=== PATIENT | female | born 1990 | race Asian ===

== ENCOUNTER 2018-02-01 16:49 | Emergency (ER) | payer OTHER ==
[2018-02-01 16:58] VITALS: BP 103/79
--- NOTE | 2018-02-01 17:40 | EDPHY ---
H & P Stated Complaint: neck pain for past few days Time Seen by Provider: 02/01/18 17:26 HPI/ROS: CHIEF COMPLAINT: Right lateral neck pain HISTORY OF PRESENT ILLNESS: 28-year-old female currently approximately 8 weeks based on last menstrual complaining of right lateral neck pain for the past 3 days after she was watching TV in bed with her head turned an awkward angle. She has not taken any analgesics including no [id number] analgesic. She has reproducible pain to the right paraspinous cervical region with palpation and range of motion. She denies: Radicular symptoms, history of major minor head or neck trauma, chiropractic manipulation, acupuncture, deep tissue massage, denies ocular complaints, facial complaints, headache, dizziness. PRIMARY CARE PROVIDER: REVIEW OF SYSTEMS: A ten point review of systems was performed and is negative with the exception of the items mentioned in the HPI PAST MEDICAL/SURGICAL HISTORY: no anticoagulant use, currently approximately 8 weeks SOCIAL HISTORY: nonsmoker PHYSICAL EXAM 1) GENERAL: Well-developed, well-nourished, alert and oriented. Appears to be in no acute distress. Answering questions appropriately. 2) HEAD: Normocephalic, atraumatic 3) HEENT: Pupils equal, round, reactive to light bilaterally. Negative Horners. Nasopharynx, oropharynx, clear. No deformity or angulation of nose. No septal hematoma. No rhinorrhea. No oral trauma. Ears bilaterally with normal tympanic membranes. No hemotympanum.. 4) NECK: Tender to palpation right paraspinous cervical region. No midline pain. This pain is reproducible with palpation and range of motion. Posterior cervical spine is nontender, no stepoff, no effusion. Full range of motion which does not elicit any midline cervical spine pain, no posterior midline tenderness, no step-off. No carotid bruit. 5) LUNGS: Clear to auscultation bilaterally, no wheezes, no rhonchi, no retractions. No obvious signs of trauma. No chest wall pain. No flaring, no grunting. Moving symmetrically. No crepitus. 6) HEART: [Regular rate and rhythm, 7) ABDOMEN: No guarding, no rebound, no focal tenderness, no peritoneal signs, no signs of trauma, no ecchymosis 8) MUSCULOSKELETAL: Moving all extremities, no focal areas of tenderness, no obvious trauma. 9) BACK: No midline vertebral tenderness, no fluctuance, no step-off, no obvious trauma, no visual or palpable abnormality. 10) SKIN: No laceration. No abrasion 11) NEURO: Awake, alert, and oriented to person, place and time. Answers questions appropriately. There were no obvious focal neurologic abnormalities. No cerebellar dysfunction. Cranial nerves 2 through to 12 intact. Normal steady gait. Upper and lower extremities bilaterally with strength 5 / 5, reflexes 2+. DIFFERENTIAL DIAGNOSIS: In no particular order my differential includes but is not limited to deep space infection, cervico-cranial vessel disssection, muscle strain. - Personal History LMP (Females 10-55): Over 28 Days Ago - Medical/Surgical History Hx Asthma: No Hx Chronic Respiratory Disease: No Hx Diabetes: No Hx Cardiac Disease: No Hx Renal Disease: No Hx Cirrhosis: No Hx Alcoholism: No Hx HIV/AIDS: No Hx Splenectomy or Spleen Trauma: No Other PMH: hypothyroid - Social History Smoking Status: Never smoked Constitutional: Initial Vital Signs Temperature (C) 36.7 C 02/01/18 16:55 Heart Rate 87 02/01/18 16:55 Respiratory Rate 18 02/01/18 16:55 Blood Pressure 103/79 02/01/18 16:55 O2 Sat (%) 99 02/01/18 16:55 O2 Delivery Mode Room Air Allergies/Adverse Reactions: No Known Allergies Allergy (Unverified 02/01/18 16:54) Home Medications: Medication Instructions Recorded Lidocaine [Lidoderm] 1 each TP BID #30 adh..patch 02/01/18 Synthroid 02/01/18 Medical Decision Making ED Course/Re-evaluation: I think that the patient's symptoms are more than likely secondary to muscular strain. I think that cervico-cranial vessel dissection is less than likely in this patient at this time. At this time I do not that imaging studies are indicated. We discussed analgesics the presence of 1st trimester including Tylenol, Lidoderm patches. She has been given strict return precautions. I discussed this with the patient and she is in agreement and feels comfortable with this treatment plan. My usual and customary cervical precautions and instructions have been provided including avoiding manipulation of the area. Patient feels comfortable being discharged Departure - Departure Disposition: Home, Routine, Self-Care Clinical Impression: Cervical strain, acute Qualifiers: Encounter type: initial encounter Qualified Code(s): S16.1XXA - Strain of muscle, fascia and tendon at neck level, initial encounter Condition: Good Instructions: Cervical Strain (ED) Additional Instructions: Return to the ER immediately if you experience new or worsening neck pain, dizziness, visual disturbance, double vision, lightheadedness, facial droop, or any other symptoms that concern you. Avoid deep tissue massage and chiropractic manipulation, until symptom-free, and cleared by your regular health care provider. Adult Pain & Fever Control: We recommend Acetaminophen (Tylenol) For pain. Your dose is: Acetaminophen [650]mg every 4 to 6 hours Referrals: Chelita Guadalupe MD [Primary Care Provider] - 02/04/18 Prescriptions: Lidocaine [Lidoderm] 1 each TP BID #30 adh..patch
[2018-02-01] MEDS ORDERED: ACETAMINOPHEN 325 MG TAB PO ONE (17:42)
[2018-02-01] MEDS ORDERED: LIDOCAINE 4%/MENTHOL 1% PATCH TD ONE (17:43)
[2018-02-01] MEDS ORDERED: PATCH REMOVAL 1 EA PATCH TD SCH (21:00)
== END 2018-02-01 17:58 | disposition home or self-care (01) ==
DX: O9A.211 Injury, poisoning and certain other consequences of external causes complicating pregnancy, first trimester (principal); S16.1XXA Strain of muscle, fascia and tendon at neck level, initial encounter; Z3A.08 8 weeks gestation of pregnancy; X50.9XXA Other and unspecified overexertion or strenuous movements or postures, initial encounter; Y92.89 Other specified places as the place of occurrence of the external cause; Y99.8 Other external cause status; Y93.89 Activity, other specified

== ENCOUNTER → 2018-02-01 | Outpatient (CLI) | payer OTHER | LOC: FIMAGING 14:59 | PROVIDERS: ATTEND Obstetrics & Gynecology | DX: Z32.01 Encounter for pregnancy test, result positive (principal); Z3A.01 Less than 8 weeks gestation of pregnancy ==

== ENCOUNTER 2018-02-02 12:13 | Emergency (ER) | payer OTHER ==
[2018-02-02] MEDS ORDERED: ACETAMINOPHEN 500 MG TAB PO ONE (13:26)
[2018-02-02] MEDS ORDERED: NS 1,000 ML IV ONE (13:26)
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
[2018-02-02 16:58] VITALS: BP 118/75
== END 2018-02-02 17:05 | disposition home or self-care (01) ==
DX: O99.511 Diseases of the respiratory system complicating pregnancy, first trimester (principal); J02.9 Acute pharyngitis, unspecified; O99.89 Other specified diseases and conditions complicating pregnancy, childbirth and the puerperium; M54.2 Cervicalgia; E86.9 Volume depletion, unspecified; Z3A.01 Less than 8 weeks gestation of pregnancy